=== PATIENT | female | born 1995 | race Two or more races ===

== ENCOUNTER 2023-03-31 15:29 | Emergency (ER) | payer MEDICAID ==
[~2023-03-31] VITALS: Ht 157.5 cm; Wt 45.0 kg
[2023-03-31 16:29] LABS: Basophils # (auto) 0 10 ^3/uL (0-0.2); Basophils % (auto) 0.1 % (0.0-2.0); Eosinophils # (auto) 0 10 ^3/uL (0-0.8); Hematocrit 41.8 % (36.0-46.0); Hemoglobin 13.7 g/dL (12.2-16.2); Lymphocytes # (auto) 2.2 10 ^3/uL (0.4-5.4); Lymphocytes % (auto) 25.8 % (10.0-50.0); Mean Corpuscular Hemoglobin 29.8 pg (28.0-32.0); Mean Corpuscular Hgb Conc. 32.8 g/dL (32.0-36.0); Mean Corpuscular Volume 90.8 fL (80.0-100.0); Monocytes # (auto) 0.7 10 ^3/uL (0-1.3); Monocytes % (auto) 8.4 % (0.0-12.0); Neutrophils # (auto) 5.6 10 ^3/uL (1.6-8.6); Neutrophils % (auto) 65.7 % (37.0-80.0); Red Cell Distribution Width 13.2 % (11.8-14.3); White Blood Cell 8.6 10^3/uL (4.4-10.8)
[2023-03-31 16:33] LABS: Urine Bacteria FEW /hpf (None Seen); Urine Blood Negative /uL (Negative); Urine WBC 4 /hpf (0 - 5)
[2023-03-31] MEDS ORDERED: CEPH250C PO (16:41)
[2023-03-31 16:54] LABS: Albumin 4.1 g/dL (3.4-5.0); Calcium 8.8 mg/dL (8.5-10.1); Potassium 3.9 mmol/L (3.5-5.1)
[2023-03-31 16:57] LABS: Bilirubin, Total 0.4 mg/dL (0.2-1.0); Total Protein 7.3 g/dL (6.4-8.2)
[2023-03-31 17:49] VITALS: BP 101/70; PULSE 85; RESP 16; TEMP 98.6; O2SAT 98
== END 2023-03-31 17:51 | disposition home or self-care (01) ==
LOC: ER 15:29
DX: N39.0 Urinary tract infection, site not specified (principal); R10.2 Pelvic and perineal pain
CPT/HCPCS: 36415; 80053; 81001; 84702; 85025

== ENCOUNTER 2025-07-14 12:38 | Observation (INO) | payer BC, MEDICAID ==
[~2025-07-14 12:38] MED LIST: CEPH250C PO; CHLO0.1238 MT; LIDO2SOL18 MT; PREN-96 PO
--- NOTE | 2025-07-14 13:56 | DVH ---
BIOPHYSICAL PROFILE HISTORY: Decreased movement TECHNIQUE: Multiple transabdominal real-time grayscale sonographic images through the gravid uterus of the fetus with duplex Doppler color flow and M-mode spectral analysis FINDINGS: BIOPHYSICAL PROFILE: breathing score: 2 movement score: 2 tone score: 2 Quantitative MADELYN score: 2 (MADELYN: 12.8 cm, MVP: 4.4 cm ) Total score: 8/8 The cervix obscured by head Single live fetus in cephalic presentation. heart rate 159 beats per minute. Fundal Grade 2-3 placenta without previa or abruption Single live fetus at 37 weeks 4 days Biophysical profile score 8/8 corresponding to an SOLO of 07/31/2025 IMPRESSION: 1. Biophysical profile score: 8/8
== END 2025-07-14 14:31 | disposition home or self-care (01) ==
LOC: LDRP 12:38 → UNDOADMOB 12:38 → LDRP 12:49
PROVIDERS: ADMIT Obstetrics & Gynecology; ATTEND Obstetrics & Gynecology
DX: O36.8130 Decreased fetal movements, third trimester, not applicable or unspecified (principal); Z3A.37 37 weeks gestation of pregnancy; Z98.890 Other specified postprocedural states
CPT/HCPCS: 76818; 81002; G0378; 59025; 76819

== ENCOUNTER 2025-07-15 09:40 | Observation (INO) | payer SELFPAY ==
--- NOTE | 2025-07-15 15:06 | DVHDS2 ---
Physician Discharge Progress N Final Diagnosis: sga 37wks Operations or Procedures: Operations or Procedures nst reactive reviwed,sono Condition on Discharge: Good Disposition: Home Discharge Instructions: Diet: Regular Activity: No Restrictions, As Tolerated Medications: na Follow Up Care: Specialist: 2d Discharge Statement: "Patient was advised to return to the ER or call 911 if any headaches, dizziness, shortness of breath, chest pain, abdominal pain, bleeding, fevers, or worsening of medical condition. Patient was counseled about treatment plan, medications, possible side effects, patientverbalized understanding. All questions were answered to the best of my ability. This discharge took greater then 30 minutes in planning, reviewing documentat ion, counseling the patient, and discussing with other team members." Visit Coding OBGYN Date of Service: Jul 15, 2025 Billing Provider: TIANA SINGH DO HEAD IRRIGATOR Common Visit Codes: [id number] INP/OBS CARE (HIGH) HEAD IRRIGATOR Procedure Codes: 68768-35- NON-STRESS TEST TIANA SINGH DO Jul 15, 2025 15:06
== END 2025-07-15 11:06 | disposition home or self-care (01) ==
LOC: LDRP 09:40
PROVIDERS: ADMIT Obstetrics & Gynecology; ATTEND Obstetrics & Gynecology
DX: O36.5930 Maternal care for other known or suspected poor fetal growth, third trimester, not applicable or unspecified (principal); Z3A.37 37 weeks gestation of pregnancy; Z98.890 Other specified postprocedural states
CPT/HCPCS: 59025; 81002; 94760; G0378

== ENCOUNTER 2025-07-19 09:46 | Observation (INO) | payer BC, SELFPAY ==
--- NOTE | 2025-07-19 12:47 | DVH ---
BIOPHYSICAL PROFILE HISTORY: SGA TECHNIQUE: Multiple transabdominal real-time grayscale sonographic images through the gravid uterus of the fetus with duplex Doppler color flow and M-mode spectral analysis FINDINGS: BIOPHYSICAL PROFILE: breathing score: 2 movement score: 2 tone score: 2 Quantitative MADELYN score: 2 (MADELYN: 14.3 cm, MVP: 4.4 cm.) Total score: 8/8 The cervix not visualized Single live fetus in cephalic presentation. heart rate 147 beats per minute. Fundal Grade 2 placenta without previa or abruption Single live fetus at 30 weeks 2 days Biophysical profile score 8/8 corresponding to an SOLO of 07/31/2025. IMPRESSION: 1. Biophysical profile score: 8/8 2. FHR: 147 BPM.
--- NOTE | 2025-07-19 13:42 | DVH ---
EXAM: US OB ULTRASOUND COMP GTR 14 WKS HISTORY: SGA COMPARISON: None TECHNIQUE: Transabdominal and endovaginal real time abbasi scale, color, and doppler evaluation. Permanent images are maintained in the patient record. FINDINGS: GA by previous US/LMP: 38 weeks, 2 days SOLO by previous US/LMP: 07/31/25 US GESTATIONAL AGE: 36 weeks, 3 days US SOLO: 08/13/25 ESTIMATED WEIGHT: 2746 g. 6 lb, 1 oz HEART RATE: 148 bpm BPD: 9.34 cm, 38 weeks 0 days, 68.3% HC: 33.08 cm, 37 weeks 5 days, 19.3% AC: 31.61 cm, 35 weeks 4 days, 5.9% FL: 6.68 cm, 34 weeks 3days, 3% HC/AC: 1.05 ANATOMY: Normal 4-chamber heart, stomach, kidneys, bladder POSITION: Cephalic PLACENTA: Fundal MADELYN: 14.3 cm IMPRESSION: 1. Single viable gestation with normal cardiac heart rate.
--- NOTE | 2025-07-22 16:55 | DVHDS2 ---
Physician Discharge Progress N Final Diagnosis: iup at 38wks labor check Operations or Procedures: Operations or Procedures nst reactive reviwed,sono Condition on Discharge: Good Disposition: Home Discharge Instructions: Diet: Regular Activity: No Restrictions, As Tolerated Medications: na Follow Up Care: Specialist: 2d Discharge Statement: "Patient was advised to return to the ER or call 911 if any headaches, dizziness, shortness of breath, chest pain, abdominal pain, bleeding, fevers, or worsening of medical condition. Patient was counseled about treatment plan, medications, possible side effects, patientverbalized understanding. All questions were answered to the best of my ability. This discharge took greater then 30 minutes in planning, reviewing documentation, counseling the patient, and discussing with other team members." Visit Coding OBGYN Date of Service: Jul 19, 2025 Billing Provider: TIANA SINGH DO INSURANCE FOLLOW UP SPECIALIST Common Visit Codes: [id number] OBS CARE (HIGH) INSURANCE FOLLOW UP SPECIALIST Procedure Codes: 91782-24- NON-STRESS TEST TIANA SINGH DO Jul 22, 2025 16:55
== END 2025-07-19 13:27 | disposition home or self-care (01) ==
LOC: LDRP 10:14
PROVIDERS: ADMIT Obstetrics & Gynecology; ATTEND Obstetrics & Gynecology
DX: O62.9 Abnormality of forces of labor, unspecified (principal); Z3A.38 38 weeks gestation of pregnancy; Z98.890 Other specified postprocedural states
CPT/HCPCS: 76805; 76818; 81002; 94760; G0378; 59025; 76819

== ENCOUNTER 2025-07-24 15:13 | Observation (INO) | payer BC ==
--- NOTE | 2025-07-25 09:14 | DVHDS2 ---
Physician Discharge Progress N Final Diagnosis: swelloing 34 wks Operations or Procedures: Operations or Procedures nst reactive reviwed,sono Condition on Discharge: Good Disposition: Home Discharge Instructions: Diet: Regular Activity: No Restrictions, As Tolerated Medications: na Follow Up Care: Specialist: 2d Discharge Statement: "Patient was advised to return to the ER or call 911 if any headaches, dizziness, shortness of breath, chest pain, abdominal pain, bleeding, fevers, or worsening of medical condition. Patient was counseled about treatment plan, medications, possible side effects, patientverbalized understanding. All questions were answered to the best of my ability. This discharge took greater then 30 minutes in planning, reviewing doc umentation, counseling the patient, and discussing with other team members." Visit Coding OBGYN Date of Service: Jul 25, 2025 Billing Provider: TIANA SINGH DO PLASTIC EXTRUDING MACHINE OPERATOR Common Visit Codes: [id number] INP/OBS CARE (HIGH) PLASTIC EXTRUDING MACHINE OPERATOR Procedure Codes: 95916-90- NON-STRESS TEST TIANA SINGH DO Jul 25, 2025 09:14
== END 2025-07-24 16:26 | disposition home or self-care (01) ==
LOC: UNDOADMOB 15:13 → LDRP 15:13 → UNDODISOB 16:26
PROVIDERS: ADMIT Obstetrics & Gynecology; ATTEND Obstetrics & Gynecology
DX: O26.893 Other specified pregnancy related conditions, third trimester (principal); M79.89 Other specified soft tissue disorders; Z3A.34 34 weeks gestation of pregnancy; Z98.890 Other specified postprocedural states
CPT/HCPCS: 59025; 81002; 94760

== ENCOUNTER 2025-07-30 06:29 | Inpatient (IN) | payer BC ==
[~2025-07-30] VITALS: Ht 157.5 cm; Wt 59.0 kg
[2025-07-30] MEDS ORDERED: BUTORPHANOL TARTRATE 2 MG/1 ML VIAL IV PRN ×2 (08:30)
[2025-07-30 09:16] LABS: Hematocrit 42.2 % (36.0-46.0); Hemoglobin 14.3 g/dL (12.2-16.2); Mean Corpuscular Hemoglobin 31.8 pg (28.0-32.0); Mean Corpuscular Volume 94.0 fL (80.0-100.0); Nucleated Red Blood Cells % 0.1 %
[2025-07-30 09:27] LABS: Urine Protein, UAD TRACE (Negative)
[2025-07-30 09:28] LABS: INR 0.9 (0.9-1.15); Partial Thromboplastin Time 28.8 SEC (24.5-34.5); Prothrombin Time 9.6 sec (9.3-11.8)
[2025-07-30 09:34] LABS: Alanine Aminotransferase 24 U/L (7-40); Anion Gap 9 (5-15); BUN/Creatinine Ratio 12.5 (10.0-20.0); Calcium 9.1 mg/dL (8.7-10.4); Carbon Dioxide 25 mmol/L (20-31); Chloride 105 mmol/L (98-107); Glucose 91 mg/dL (74-106); Potassium 3.6 mmol/L (3.5-5.1); Sodium 139 mmol/L (136-145); Total Protein 6.1 g/dL (5.7-8.2)
[2025-07-30 09:35] LABS: Albumin 3.6 g/dL (3.2-4.8); Bilirubin, Total 0.3 mg/dL (0.2-1.0)
[2025-07-30] MEDS: PENICILLIN G POT 5MIL/D5 50ML 50 ML IV ONE (09:36)
[2025-07-30 09:37] LABS: Alkaline Phosphatase 182 U/L (46-116); Blood Urea Nitrogen 8 mg/dL (9-23)
[2025-07-30] MEDS: DERMOPLAST 60ML BOTTLE TOP PRN (09:40)
[2025-07-30] MEDS: PHISODERM TOP SOLN 240ML BTL TOP PRN (09:40)
[2025-07-30] MEDS: WITCH HAZEL-GLYCERIN PAD TOP PRN (09:40)
[2025-07-30] MEDS: LACTATED RINGER'S 1,000 ML IV SCH (09:41)
[2025-07-30 10:04] LABS: Amphetamine Screen, Urine Neg (NEGATIVE); Barbiturate Scree,Urine Neg (NEGATIVE); Benzodiazephine Screen, Urine Neg (NEGATIVE); Cannabinoid Screen, Urine Neg (NEGATIVE); Cocaine Screen, Urine Neg (NEGATIVE); Opiate Scree,Urine Neg (NEGATIVE); Phencyclidine Screen, Urine Neg (NEGATIVE)
[2025-07-30] MEDS: PENICILLIN G POTASSIUM 2,500,000 UNITS in D5W 5% 50 ML IV SCH (13:42)
--- NOTE | 2025-07-30 14:51 | DVHHP2 ---
OB CC & HPI Date Date of Admission: Jul 30, 2025 Patient Identification: : 2 Para: 1 EDC: Jul 31, 2025 EGA: 39wks Chief Complaints: Reason for admission: induction of labor Admission Nurse Assessment Rev: No History of Present Complaints pt desires to be induced,denies any vag bleeding or rom Past Medical History Cardiac: No pertinent Hx Pulmonary: No pertinent Hx Central Nervous System: No pertinent Hx GI: No pertinent Hx Hemotology/Oncology: No pertinent Hx Hepatobiliary: No pertinent Hx Psychiatric: No pertinent Hx Musculoskeletal: No pertinent Hx Rheumotologic: No pertinent Hx Infectious Disease: No peritnent Hx ENT: No pertinent Hx Renal/: No pertinent Hx Endocrine: No pertinent Hx Dermatology: No pertinent Hx Past Surgical History: No pertinent Hx OB History OB History Care: Good Care Ultrasounds: Normal mid trimester US Medical Complications: None Allergies: Coded Allergies: NO KNOWN ALLERGIES (Unverified , 03/31/23) Home Meds Active Scripts Cephalexin (KEFLEX CAPSULE) 250 Mg Cp, 250 MG PO TID for 7 Days, #21 BOTTLE Prov:ABHI ORTIZ MD 03/31/23 Lidocaine Hcl (Lidocaine Viscous) 2 % Norma, 15 ML MT BID for 7 Days, #120 Prov:SANDRA MCMANUS MD 11/01/21 Chlorhexidine Gluconate (Mouth (Chlorhexadine Gluconate) 0.12 % Norma, 0.12 % MT BID, #120 ML Prov:SANDRA MCMANUS MD 11/01/21 Reported Medications Vit W/ Ferrous Fumara ( One Daily) Daily Tab, 1 TAB PO DAILY, #90 TAB 3 Refills 05/06/20 Current Medications Current Medications Medications (Trade) Dose Ordered Sig/Reggie Route PRN Reason Start Time Stop Time Status Last Admin Lactated Ringer's 1,000 ml @ 125 mls/hr Q8H IV 07/30/25 08:30 07/30/25 09:41 Penicillin G Potassium [id number] units/Dextrose 50 ml @ 100 mls/hr Q4H IV 07/30/25 12:30 07/30/25 13:42 Witch Brittny (Tucks) 1 pad PRN PRN TOP PERINEAL AREA DISCOMFORT 07/30/25 08:30 07/30/25 09:40 Sodium Lauryl Sulfate (Phisoderm) 240 ml PRN PRN TOP PERINEAL AREA DISCOMFORT 07/30/25 08:30 07/30/25 09:40 Benzocaine (Dermoplast) 1 applic PRN PRN TOP PERINEAL AREA DISCOMFORT 07/30/25 08:30 07/30/25 09:40 Butorphanol Tartrate (Stadol Injection) 1 mg Q4HPRN PRN IV MODERATE PAIN (4-6 PAIN SCALE) 07/30/25 08:30 Butorphanol Tartrate (Stadol Injection) 2 mg Q4HPRN PRN IV SEVERE PAIN (7-10 PAIN SCALE) 07/30/25 08:30 Misoprostol (Cytotec) 50 mcg Q4HPRN PRN PO CERVICAL RIPENING 07/30/25 08:30 07/30/25 13:41 Lidocaine HCl (Xylocaine) 20 ml ONCE PRN IJ PERINEAL AREA DISCOMFORT 07/30/25 08:30 Family & Social History Family/Social History Blood Type: Unknown Rubella: unknown RPR/VDRL: Negative GBS Status: Negative HBsAG: Negative Review of Systems Constitutional: No symptom reported Ears, Nose, & Throat: No symptom reported Eyes: No symptom reported Pulmonary/Respiratory: No symptom reported Cardiovascular: No symptom reported Gastrointestinal: No symptom reported Genitourinary: No symptom reported Musculoskeletal: No symptom reported Skin: No symptom reported Psychiatric: No symptom reported Endocrine: No symptom reported Hemotologic/Lymphatic: No symptom reported OB Admission Exam Physical Exam HEENT: TMs Normal, Fontanelles Normal, Nasal Mucosa Normal, Eyes non-injected, Oropharynx Normal, PERRLA, Moist Membranes, EOMI Heart: Rhythm Normal Lungs: Clear Abdomen: Non tender Extremities: Normal Reflexes: Normal Cervical Dilatation: 2cm Effacement: 25% Station: -3 Membranes: Intact Heart Rate: 130's Accelerations: Accelerations Present Decelerations: No Decelerations Short Term Variability: Present Rn Gyn Variability: Average (6-25) Contractions on Admission: >10 Minutes Apart Intensity: Mild OB Plan Plan Admitting Diagnosis: induction of labor at 39 wks Plan: Induction Other Plan: informed consent obtained proceed with cytotec.possib of shoulder dystocia /option of pcs d/w pt.pt wants to proceed with iol Visit Coding OBGYN Date of Service: Jul 30, 2025 Billing Provider: TIANA SINGH DO AIR CONDITIONER INSTALLER HELPER Common Visit Codes: [id number] OBS CARE (HIGH) AIR CONDITIONER INSTALLER HELPER Procedure Codes: 55621-90- NON-STRESS TEST TIANA SINGH DO Jul 30, 2025 14:51
--- NOTE | 2025-07-30 15:13 | DVHPN2 ---
Chief Complaints Patient reports: No new complaints Nursing reports: No new complaints Objective Medications Current Medications Medications (Trade) Dose Ordered Sig/Reggie Route PRN Reason Start Time Stop Time Status Last Admin Benzocaine (Dermoplast) 1 applic PRN PRN TOP PERINEAL AREA DISCOMFORT 07/30/25 08:30 07/30/25 09:40 Butorphanol Tartrate (Stadol Injection) 1 mg Q4HPRN PRN IV MODERATE PAIN (4-6 PAIN SCALE) 07/30/25 08:30 Butorphanol Tartrate (Stadol Injection) 2 mg Q4HPRN PRN IV SEVERE PAIN (7-10 PAIN SCALE) 07/30/25 08:30 Lactated Ringer's 1,000 ml @ 125 mls/hr Q8H IV 07/30/25 08:30 07/30/25 09:41 Lidocaine HCl (Xylocaine) 20 ml ONCE PRN IJ PERINEAL AREA DISCOMFORT 07/30/25 08:30 Misoprostol (Cytotec) 50 mcg Q4HPRN PRN PO CERVICAL RIPENING 07/30/25 08:30 07/30/25 13:41 Penicillin G Potassium 9052849 units/Dextrose 50 ml @ 100 mls/hr Q4H IV 07/30/25 12:30 07/30/25 13:42 Sodium Lauryl Sulfate (Phisoderm) 240 ml PRN PRN TOP PERINEAL AREA DISCOMFORT 07/30/25 08:30 07/30/25 09:40 Witch Brittny (Tucks) 1 pad PRN PRN TOP PERINEAL AREA DISCOMFORT 07/30/25 08:30 07/30/25 09:40 Others ve- 3cm/50/-2 Studies Laboratory Tests 07/30/25 08:46 Test 07/30/25 08:46 Range/Units Serum Glucose 91 74-106 mg/dL Ass/Plan Assessment iol Plan rec 2 cytotec Visit Coding OBGYN Date of Service: Jul 30, 2025 Billing Provider: TIANA SINGH DO SPORTS OFFICIAL Common Visit Codes: [id number] OBS CARE (HIGH) SPORTS OFFICIAL Procedure Codes: 21510-30- NON-STRESS TEST TIANA SINGH DO Jul 30, 2025 15:13
--- NOTE | 2025-07-30 16:54 | DVHPN2 ---
CNM Labor Progress Note Date and Time Seen Date Seen: Jul 30, 2025 Time Seen: 16:33 Subjective Patient reports: No new complaints Subjective Comment Pt agrees to cooks balloon after discussion. Objective Vital Signs VSS, see CPN Monitoring Method Monitoring Method: External (via doppler) Heart Rate Heart Rate Baseline: 145 Contractions Contractions Frequency: Occasional Contractions Intensity: Mild Contractions Resting Tone: Relaxed Membranes Membranes: Intact Vaginal Exam Vag Exam Deferred: No (2.5/50/-3, cooks balloon inserted with 80/80 NS) Vaginal Exam Presentation: VTX Vaginal Exam Show: None Medications Medications - Pitocin: No Medications - Pain Medications: PRN Medication - Epidural: No Medication - Other s/p 2 doses of PO cytotec Lab Results Lab Results Current Medications Medications (Trade) Dose Ordered Sig/Reggie Start Time Stop Time Status Last Admin Dose Admin Lactated Ringer's 1,000 ml @ 125 mls/hr Q8H 07/30/25 08:30 07/30/25 09:41 125 MLS/HR Penicillin G Potassium 50 ml @ 100 mls/hr ONCE ONCE 07/30/25 08:30 07/30/25 08:59 DC 07/30/25 09:36 100 MLS/HR Penicillin G Potassium [id number] units/Dextrose 50 ml @ 100 mls/hr Q4H 07/30/25 12:30 07/30/25 13:42 100 MLS/HR [place]inna Brittny (Tucks) 1 pad PRN PRN 07/30/25 08:30 07/30/25 09:40 1 PAD Sodium Lauryl Sulfate (Phisoderm) 240 ml PRN PRN 07/30/25 08:30 07/30/25 09:40 240 ML Benzocaine (Dermoplast) 1 applic PRN PRN 07/30/25 08:30 07/30/25 09:40 1 APPLIC Butorphanol Tartrate (Stadol Injection) 1 mg Q4HPRN PRN 07/30/25 08:30 Butorphanol Tartrate (Stadol Injection) 2 mg Q4HPRN PRN 07/30/25 08:30 Misoprostol (Cytotec) 50 mcg Q4HPRN PRN 07/30/25 08:30 07/30/25 13:41 50 MCG Lidocaine HCl (Xylocaine) 20 ml ONCE PRN 07/30/25 08:30 Laboratory Tests Test 07/30/25 08:46 07/30/25 08:25 Range/Units White Blood Count 12.1 H 4.4-10.8 10^3/uL Red Blood Count 4.49 4.0-5.20 10^6/uL Hemoglobin 14.3 12.2-16.2 g/dL Hematocrit 42.2 36.0-46.0 % Mean Corpuscular Volume 94.0 80.0-100.0 fL Mean Corpuscular Hemoglobin 31.8 28.0-32.0 pg Mean Corpuscular Hemoglobin Concent 33.8 32.0-36.0 g/dL Red Cell Distribution Width 13.6 11.8-14.3 % Platelet Count 245 140-450 10^3/uL Mean Platelet Volume 8.2 6.9-10.8 fL Neutrophils (%) (Auto) 82.4 H 37.0-80.0 % Lymphocytes (%) (Auto) 11.2 10.0-50.0 % Monocytes (%) (Auto) 6.2 0.0-12.0 % Eosinophils (%) (Auto) 0.1 0.0-7.0 % Basophils (%) (Auto) 0.1 0.0-2.0 % Neutrophils # (Auto) 10.0 H 1.6-8.6 10 ^3/uL Lymphocytes # (Auto) 1.4 0.4-5.4 10 ^3/uL Monocytes # (Auto) 0.7 0-1.3 10 ^3/uL Eosinophils # (Auto) 0 0-0.8 10 ^3/uL Basophils # (Auto) 0 0-0.2 10 ^3/uL Nucleated Red Blood Cells 0.1 % Prothrombin Time 9.6 9.3-11.8 sec Prothrombin Time INR 0.90 0.9-1.15 Activated Partial Thromboplast Time 28.8 24.5-34.5 SEC Sodium Level 139 136-145 mmol/L Potassium Level 3.6 3.5-5.1 mmol/L Chloride Level 105 98-107 mmol/L Carbon Dioxide Level 25 20-31 mmol/L Anion Gap 9 5-15 Blood Urea Nitrogen 8 L 9-23 mg/dL Creatinine 0.64 0.550-1.02 mg/dL Glomerular Filtration Rate Calc 123 >90 mL/min BUN/Creatinine Ratio 12.5 10.0-20.0 Serum Glucose 91 74-106 mg/dL Calcium Level 9.1 8.7-10.4 mg/dL Total Bilirubin 0.3 0.2-1.0 mg/dL Aspartate Amino Transferase (AST) 28 13-40 U/L Alanine Aminotransferase (ALT) 24 7-40 U/L Alkaline Phosphatase 182 H 46-116 U/L Total Protein 6.1 5.7-8.2 g/dL Albumin 3.6 3.2-4.8 g/dL Treponema pallidum Antibody Non-reactive Negative Urine Color Yellow Yellow Urine Clarity Turbid H Clear Urine pH 6.5 5.0-9.0 Urine Specific [place] 1.021 1.001-1.035 Urine Protein Trace H Negative Urine Ketones Negative Negative Urine Blood Negative Negative /uL Urine Nitrite Negative Negative Urine Bilirubin Negative Negative Urine Urobilinogen Normal Negative mg/dL Urine Leukocyte Esterase 3+ Negative /uL Urine RBC 7 0 - 4 /hpf Urine Microscopic WBC 35 H 0-5 /HPF Urine Squamous Epithelial Cells Mod <5 /hpf Urine Bacteria Mod H None Seen /hpf Urine Mucus Few None Seen Urine Glucose Trace Normal mg/dL Urine Opiates Screen Neg NEGATIVE Urine Fentanyl Screen Neg NEGATIVE Urine Barbiturates Screen Neg NEGATIVE Urine Phencyclidine Screen Neg NEGATIVE Urine Amphetamines Screen Neg NEGATIVE Urine Benzodiazepines Screen Neg NEGATIVE Urine Cocaine Screen Neg NEGATIVE Urine Cannabinoids Screen Neg NEGATIVE Assessment Assessment A: 30yo IUP@39 6/7wks Elective Induction of Labor Category I EFM Intact Membranes GBS positive Plan Plan P: Plan to keep cooks balloon for 12 hours or until it falls out Discussed potential of starting pitocin later, pt agrees to plan of care monitoring per order Pain mgmt PRN Frequent position changes in and out of bed encouraged Limit SVE unless necessary Intrauterine resuscitation PRN Anticipate CNM will consult with Dr. Brewer PRN Plan discussed with: Patient, Spouse Visit Coding OBGYN Date of Service: Jul 30, 2025 Billing Provider: DASHAWN PINON CNM RIVETING MACHINE OPERATOR TAPE CONTROL Common Visit Codes: [id number] INP/OBS CARE(MOD) RIVETING MACHINE OPERATOR TAPE CONTROL Procedure Codes: 54454-87- NON-STRESS TEST DASHAWN PINON CNM Jul 30, 2025 16:54
[2025-07-30] MEDS ORDERED: TERBUTALINE SULFATE 1 MG/ML 1ML VIAL SC PRN (19:00)
[2025-07-30] MEDS: LACT. RINGERS/OXYTOCIN 20UNITS 1,000 ML IV SCH (19:55)
[2025-07-30] MEDS: LIDOCAINE 2%HCL (LOCAL ANESTH.) INJ 20ML MDV IJ PRN (20:08)
--- NOTE | 2025-07-30 22:23 | DVHPN2 ---
CNM Labor Progress Note Date and Time Seen Date Seen: Jul 30, 2025 Time Seen: 22:05 Subjective Patient reports: No new complaints Subjective Comment Pt is tolerating labor 3/10 pain No new complaints Denies pain interventions Objective Vital Signs VSS see cpn Monitoring Method Monitoring Method: External Heart Rate Heart Rate Baseline: 145 Heart Rate Variability: Moderate Presence of FHR Accelerations: Yes Presence of FHR Decelerations: No Are all 5 Components of the FH: Yes Contractions Contractions Frequency: Other (4-5 in 10 minutes) Duration of Contraction: 80 Contractions Intensity: Moderate Contractions Resting Tone: Relaxed Membranes Membranes: Intact Vaginal Exam Vag Exam Deferred: No (4.5cm, cooks balloon out ) Vaginal Exam Effacement: 60 Vaginal Exam Station: -2 Vaginal Exam Presentation: VTX Vaginal Exam Show: Moderate Medications Medications - Pitocin: Yes (12 mu) Medications - Pain Medications: PRN Medication - Epidural: No Medication - Other S/p x2 doses of cytotec Lab Results Lab Results Current Medications Medications (Trade) Dose Ordered Sig/Reggie Start Time Stop Time Status Last Admin Dose Admin Lactated Ringer's 1,000 ml @ 125 mls/hr Q8H 07/30/25 08:30 07/30/25 09:41 125 MLS/HR Penicillin G Potassium 50 ml @ 100 mls/hr ONCE ONCE 07/30/25 08:30 07/30/25 08:59 DC 07/30/25 09:36 100 MLS/HR Penicillin G Potassium [id number] units/Dextrose 50 ml @ 100 mls/hr Q4H 07/30/25 12:30 07/30/25 17:54 100 MLS/HR [place] (Tucks) 1 pad PRN PRN 07/30/25 08:30 07/30/25 09:40 1 PAD Sodium Lauryl Sulfate (Phisoderm) 240 ml PRN PRN 07/30/25 08:30 07/30/25 09:40 240 ML Benzocaine (Dermoplast) 1 applic PRN PRN 07/30/25 08:30 07/30/25 09:40 1 APPLIC Butorphanol Tartrate (Stadol Injection) 1 mg Q4HPRN PRN 07/30/25 08:30 Butorphanol Tartrate (Stadol Injection) 2 mg Q4HPRN PRN 07/30/25 08:30 Misoprostol (Cytotec) 50 mcg Q4HPRN PRN 07/30/25 08:30 07/30/25 13:41 50 MCG Lidocaine HCl (Xylocaine) 20 ml ONCE PRN 07/30/25 08:30 07/30/25 20:08 20 ML Oxytocin 1,000 ml @ 6 ml/hr Q24H 07/30/25 19:00 07/30/25 19:55 3 ML/HR Terbutaline Sulfate (Brethine Inj) 0.25 mg ONCE PRN 07/30/25 19:00 Oxytocin 500 ml @ 999 mls/hr Q31M ONCE 07/30/25 19:00 07/30/25 19:30 DC Oxytocin 500 ml @ 125 mls/hr Q4H ONCE 07/30/25 19:30 07/30/25 23:29 Laboratory Tests Test 07/30/25 08:46 07/30/25 08:25 Range/Units White Blood Count 12.1 H 4.4-10.8 10^3/uL Red Blood Count 4.49 4.0-5.20 10^6/uL Hemoglobin 14.3 12.2-16.2 g/dL Hematocrit 42.2 36.0-46.0 % Mean Corpuscular Volume 94.0 80.0-100.0 fL Mean Corpuscular Hemoglobin 31.8 28.0-32.0 pg Mean Corpuscular Hemoglobin Concent 33.8 32.0-36.0 g/dL Red Cell Distribution Width 13.6 11.8-14.3 % Platelet Count 245 140-450 10^3/uL Mean Platelet Volume 8.2 6.9-10.8 fL Neutrophils (%) (Auto) 82.4 H 37.0-80.0 % Lymphocytes (%) (Auto) 11.2 10.0-50.0 % Monocytes (%) (Auto) 6.2 0.0-12.0 % Eosinophils (%) (Auto) 0.1 0.0-7.0 % Basophils (%) (Auto) 0.1 0.0-2.0 % Neutrophils # (Auto) 10.0 H 1.6-8.6 10 ^3/uL Lymphocytes # (Auto) 1.4 0.4-5.4 10 ^3/uL Monocytes # (Auto) 0.7 0-1.3 10 ^3/uL Eosinophils # (Auto) 0 0-0.8 10 ^3/uL Basophils # (Auto) 0 0-0.2 10 ^3/uL Nucleated Red Blood Cells 0.1 % Prothrombin Time 9.6 9.3-11.8 sec Prothrombin Time INR 0.90 0.9-1.15 Activated Partial Thromboplast Time 28.8 24.5-34.5 SEC Sodium Level 139 136-145 mmol/L Potassium Level 3.6 3.5-5.1 mmol/L Chloride Level 105 98-107 mmol/L Carbon Dioxide Level 25 20-31 mmol/L Anion Gap 9 5-15 Blood Urea Nitrogen 8 L 9-23 mg/dL Creatinine 0.64 0.550-1.02 mg/dL Glomerular Filtration Rate Calc 123 >90 mL/min BUN/Creatinine Ratio 12.5 10.0-20.0 Serum Glucose 91 74-106 mg/dL Calcium Level 9.1 8.7-10.4 mg/dL Total Bilirubin 0.3 0.2-1.0 mg/dL Aspartate Amino Transferase (AST) 28 13-40 U/L Alanine Aminotransferase (ALT) 24 7-40 U/L Alkaline Phosphatase 182 H 46-116 U/L Total Protein 6.1 5.7-8.2 g/dL Albumin 3.6 3.2-4.8 g/dL Treponema pallidum Antibody Non-reactive Negative Urine Color Yellow Yellow Urine Clarity Turbid H Clear Urine pH 6.5 5.0-9.0 Urine Specific [place] 1.021 1.001-1.035 Urine Protein Trace H Negative Urine Ketones Negative Negative Urine Blood Negative Negative /uL Urine Nitrite Negative Negative Urine Bilirubin Negative Negative Urine Urobilinogen Normal Negative mg/dL Urine Leukocyte Esterase 3+ Negative /uL Urine RBC 7 0 - 4 /hpf Urine Microscopic WBC 35 H 0-5 /HPF Urine Squamous Epithelial Cells Mod <5 /hpf Urine Bacteria Mod H None Seen /hpf Urine Mucus Few None Seen Urine Glucose Trace Normal mg/dL Urine Opiates Screen Neg NEGATIVE Urine Fentanyl Screen Neg NEGATIVE Urine Barbiturates Screen Neg NEGATIVE Urine Phencyclidine Screen Neg NEGATIVE Urine Amphetamines Screen Neg NEGATIVE Urine Benzodiazepines Screen Neg NEGATIVE Urine Cocaine Screen Neg NEGATIVE Urine Cannabinoids Screen Neg NEGATIVE Assessment Assessment 30yo IUP@39 6/7wks Elective Induction of Labor Category I EFM Intact Membranes GBS positive Plan Plan Continuing pitocin, pt agrees to plan of care continue IV penicillin for GBS tx monitoring per order Pain mgmt PRN Frequent position changes in and out of bed encouraged Limit SVE unless necessary Intrauterine resuscitation PRN Anticipate CNM will consult with Dr. Brewer PRN Plan discussed with: Patient, Spouse Visit Coding OBGYN Date of Service: Jul 30, 2025 Billing Provider: DASHAWN PINON CNM TRACK LAYING EQUIPMENT OPERATOR Common Visit Codes: [id number] INP/OBS CARE(MOD) AMADO SOLIZ STUDENTMDW Jul 30, 2025 22:23
[2025-07-31] MEDS: D5W/LACTATED RINGERS 1,000 ML IV SCH (04:19)
--- NOTE | 2025-07-31 06:57 | DVH ---
BIOPHYSICAL PROFILE HISTORY: Category 2 strip TECHNIQUE: Multiple transabdominal real-time grayscale sonographic images through the gravid uterus of the fetus with duplex Doppler color flow and M-mode spectral analysis FINDINGS: BIOPHYSICAL PROFILE: breathing score: 2 movement score: 2 tone score: 2 Quantitative MADELYN score: 2 (MADELYN: 6.9 Cm.) previously, MADELYN measured 14.3 cm on the prior ultrasound from 07/19/2025. Total score: 8 The cervix is not visualized. Single live fetus in cephalic presentation. heart rate 138 beats per minute. Grade 3 posterior placenta without previa or abruption IMPRESSION: 1. Single fetus with detected heart rate measuring 138 beats per minute. Biophysical profile score: 8/8. 2. MADELYN Decreased, currently measuring 6.9 cm previously measuring 14.3 cm on the prior ultrasound from 07/19/2025.
--- NOTE | 2025-07-31 07:02 | DVHPN2 ---
Chief Complaints Patient reports: No new complaints Nursing reports: No new complaints Objective Medications Current Medications Medications (Trade) Dose Ordered Sig/Reggie Route PRN Reason Start Time Stop Time Status Last Admin Benzocaine (Dermoplast) 1 applic PRN PRN TOP PERINEAL AREA DISCOMFORT 07/30/25 08:30 07/30/25 09:40 Butorphanol Tartrate (Stadol Injection) 1 mg Q4HPRN PRN IV MODERATE PAIN (4-6 PAIN SCALE) 07/30/25 08:30 Butorphanol Tartrate (Stadol Injection) 2 mg Q4HPRN PRN IV SEVERE PAIN (7-10 PAIN SCALE) 07/30/25 08:30 Dextrose/Lactated Ringer's 1,000 ml @ 125 mls/hr Q8H IV 07/31/25 04:00 07/31/25 04:19 Lactated Ringer's 1,000 ml @ 125 mls/hr Q8H IV 07/30/25 08:30 07/31/25 04:19 Lidocaine HCl (Xylocaine) 20 ml ONCE PRN IJ PERINEAL AREA DISCOMFORT 07/30/25 08:30 07/30/25 20:08 Misoprostol (Cytotec) 50 mcg Q4HPRN PRN PO CERVICAL RIPENING 07/30/25 08:30 07/30/25 13:41 Oxytocin 1,000 ml @ 6 ml/hr Q24H IV 07/30/25 19:00 07/30/25 19:55 Penicillin G Potassium [id number] units/Dextrose 50 ml @ 100 mls/hr Q4H IV 07/30/25 12:30 07/31/25 02:59 Sodium Lauryl Sulfate (Phisoderm) 240 ml PRN PRN TOP PERINEAL AREA DISCOMFORT 07/30/25 08:30 07/30/25 09:40 Terbutaline Sulfate (Brethine Inj) 0.25 mg ONCE PRN SC Uterine tachysystole 07/30/25 19:00 Karl Mart (Bassam) 1 pad PRN PRN TOP PERINEAL AREA DISCOMFORT 07/30/25 08:30 07/30/25 09:40 Others v e-5cm/60/-2 Studies Laboratory Tests 07/30/25 08:46 Test 07/30/25 08:46 Range/Units Serum Glucose 91 74-106 mg/dL Ass/Plan Assessment iol Plan start pitocin supportive care Visit Coding OBGYN Date of Service: Jul 31, 2025 Billing Provider: TIANA SINGH DO HAY CHOPPER Common Visit Codes: [id number] INP/OBS CARE (HIGH) HAY CHOPPER Procedure Codes: 91384-94- NON-STRESS TEST TIANA SINGH DO Jul 31, 2025 07:02
[2025-07-31] MEDS: LACT. RINGERS/OXYTOCIN 20UNITS 500 ML IV ONE ×2 (13:12→13:13)
[2025-07-31] MEDS ORDERED: ONDANSETRON ODT 4 MG TAB PO PRN (13:15)
[2025-07-31] MEDS ORDERED: ACETAMINOPHEN 325 MG TAB PO PRN (13:15)
[2025-07-31] MEDS ORDERED: IBUPROFEN 600 MG TAB PO PRN (13:15)
[2025-07-31 14:51] VITALS: BP 127/75; PULSE 79; TEMP 98.5; O2SAT 98
--- NOTE | 2025-07-31 15:10 | LDN2 ---
Labor and Delivery Note Date 07/31/25 Age 30 2 Para 2 EDC 11-20 EGA 39WKS Diagnosis IOL Vaginal Delivery: VTX Vacuum Assisted: No Placenta: Spontaneous Sex: Male Apgars 8-8 Nuchal Cord Transected: No Amniotic Fluid: Clear Anesthesia XYLOCAINE Episiotomy: Yes Extension: Yes (MIDLINE EPIS WITH 2ND DEG PERINEAL LAC) Repaired with 2-0 CHROMIC EBL 300ML Labs Blood Bank 07/30/25 08:46: Blood Type O POSITIVE Complications NONE Conditions STABLE Comments/Significant Med Yara SPEC EXAM NO CXAL LAC,PT HAD TO HAVE EPIS DUE TO POOR PUSHING EFFORT AND HEART DECL.HER PERMISSION WAS OBTAINED PRIOR TO PERFORMING EPIS Visit Coding OBGYN Date of Service: Jul 31, 2025 Billing Provider: TIANA SINGH DO SULFONATION EQUIPMENT OPERATOR Common Visit Codes: [id number] OBS CARE (HIGH) SULFONATION EQUIPMENT OPERATOR Procedure Codes: [id number] DELIVERY ONLY TIANA SINGH DO Jul 31, 2025 15:10
[2025-07-31 16:55] VITALS: PULSE 78; RESP 18; O2SAT 97
[2025-07-31] MEDS: IBUPROFEN 600 MG TAB PO ONE (18:07)
[2025-07-31] MEDS: IBUPROFEN 600 MG TAB PO PRN (18:10)
[2025-07-31 19:00] VITALS: BP 106/59; PULSE 98; TEMP 97.9; O2SAT 95
[2025-07-31] MEDS: DOCUSATE SOD 100 MG CAP PO SCH (22:03)
[2025-07-31 23:00] VITALS: BP 103/58; PULSE 71; TEMP 97.9; O2SAT 95
[2025-08-01 03:10] VITALS: BP 103/64; PULSE 75; TEMP 97.9; O2SAT 95
--- NOTE | 2025-08-01 04:21 | DVHPN2 ---
Progress Note Date Seen: Aug 01, 2025 Subjective Mariela is sitting in bed with baby skin to skin on her chest. Partner is awake and at bedside SUBJECTIVE -Lochia minimal -Tolerating regular diet well. -Pain relieved with oral medication PRN -Ambulating and voiding well w/o feeling lightheaded or dizzy. -Passing flatus and had BM -Breast feeding. -Desires and requests to be discharged home today (08/01) vital signs Vital Sign Date Time Temp Pulse Resp B/P (MAP) Pulse Ox O2 Delivery O2 Flow Rate FiO2 08/01/25 03:10 97.9 75 103/64 (77) 95 97.9 07/31/25 19:00 Room Air 07/31/25 16:55 18 Total Intake and Output 07/31/25 07/31/25 08/01/25 15:00 23:00 07:00 Output Total 900 ml 700 ml 700 ml Balance -900 ml -700 ml -700 ml medications Current Medications Medications Dose Ordered Sig/Reggie Route Start Time Stop Time Status Last Admin Dose Admin Lactated Ringer's 1,000 ml @ 125 mls/hr Q8H IV 07/30/25 08:30 07/31/25 04:19 125 MLS/HR Witch Brittny 1 pad PRN PRN TOP 07/30/25 08:30 07/30/25 09:40 1 PAD Sodium Lauryl Sulfate 240 ml PRN PRN TOP 07/30/25 08:30 07/30/25 09:40 240 ML Benzocaine 1 applic PRN PRN TOP 07/30/25 08:30 07/30/25 09:40 1 APPLIC Butorphanol Tartrate 1 mg Q4HPRN PRN IV 07/30/25 08:30 Cancel Butorphanol Tartrate 2 mg Q4HPRN PRN IV 07/30/25 08:30 Cancel Lidocaine HCl 20 ml ONCE PRN IJ 07/30/25 08:30 07/30/25 20:08 20 ML Terbutaline Sulfate 0.25 mg ONCE PRN SC 07/30/25 19:00 Ibuprofen 600 mg Q6HP PRN PO 07/31/25 13:15 UNV Acetaminophen 650 mg Q4HP PRN PO 07/31/25 13:15 Ondansetron HCl 4 mg Q4HPRN PRN PO 07/31/25 13:15 Docusate Sodium 200 mg HS PO 07/31/25 22:00 07/31/25 22:03 200 MG Ibuprofen 600 mg Q6HP PRN PO 07/31/25 16:15 07/31/25 18:10 600 MG laboratory and microbiology Laboratory Tests 07/30/25 08:46 Test 07/30/25 08:46 Range/Units Serum Glucose 91 74-106 mg/dL Objective OBJECTIVE -A&O x4. No apparent distress. Affect appropriate -Afebrile, VSS -Chest: heart and lung sounds normal. -Breasts: Nipples intact w/o cracks or soreness -Abdomen: normal BS, soft, non-tender, no rebound or guarding, fundus firm @ U- 1, lochia minimal -Perineum:- no edema, or erythema -Extremities: no edema or tenderness Problems(with codes): (1) (normal spontaneous vaginal delivery) (2) Second degree perineal laceration Assessment/Plan ASSESSMENT -30 yo now ppd #1 s/p doing well. -Blood Type: O+ -Breast feeding -Rubella Immune PLAN -Helped patient latch baby onto R breast and extensively discussed . Answered all patient questions and concerns. -Continue pain management with oral medications as previously ordered -Increase fluid intake and fiber in diet to promote regular bowel movements, Laxative PRN -Encouraged patient to continue taking vitamin and iron -Educated patient on self care and warning signs of PPH, PPD, and pre-eclampsia. Answered all pt questions and concerns -Continue routine care and anticipate discharge today Plan discussed with: Patient, Spouse Visit Coding OBGYN Date of Service: Aug 01, 2025 Billing Provider: SHARDA GREEN CNM INTRAOPERATIVE NEURO TECH Common Visit Codes: [id number] INP/OBS CARE(MOD) SHARDA GREEN CNM Aug 01, 2025 04:21
--- NOTE | 2025-08-01 04:23 | DVHDS2 ---
Obstetrics Discharge Summary Obstetrics Discharge Summary Date of Admission: Jul 30, 2025 Date of Discharge: Aug 01, 2025 Reason For Admission: Induction of Labor (elective) Intrapartum Procedures: Spontaneous vaginal deliv, Episiotomy (ML with 2nd degree extension) Discharge Diagnosis: Term -Delivered Discharge Information: Activity (Unrestricted. Advance as tolerated. Balance activities with rest periods. No heavy lifting, pushing or straining. Pelvic rest x 6 weeks), Diet (Routine), Medications (Ibuprofen 600mg every 6 hours as needed for pain. Colace 100mg twice a day as needed to keep bowel movements soft and prevent constipation. Continue Vitamin and iron), Instructions (Routine), Discharge to (Home), Accompanied by (partner), Discarge date (08/01/2025) Discharge Care Plan Instructions - self care instructions given - emergency signs and symptoms including but not limited to pre-eclampsia precautions and signs of infection, PPH & of PPD reviewed with patient. -Follow up with OB Provider in 2 weeks and again at 6 weeks Visit Coding OBGYN Date of Service: Aug 01, 2025 Billing Provider: SHARDA GREEN CNM NURSE SPECIALIST Common Visit Codes: [id number]-EQN/OBS DISCH DAY >30MIN SHARDA GREEN CNM Aug 01, 2025 04:23
[2025-08-01] MEDS ORDERED: DOCU-94 PO (04:24)
[2025-08-01] MEDS ORDERED: IBU600T PO (04:24)
[2025-08-01 07:20] VITALS: BP 107/63; PULSE 78; TEMP 97.7; O2SAT 95
[2025-08-01 10:57] VITALS: BP 102/68; PULSE 84; TEMP 97.8; O2SAT 94
== END 2025-08-01 14:52 | disposition home or self-care (01) | DRG 807 ==
LOC: LDRP 08:10
PROVIDERS: ADMIT Obstetrics & Gynecology; ATTEND Obstetrics & Gynecology
PROC: 10E0XZZ Delivery of Products of Conception, External Approach (ICD-10-PCS; principal; 2025-07-31)
PROC: 0KQM0ZZ Repair Perineum Muscle, Open Approach (ICD-10-PCS; 2025-07-31)
PROC: 0W8NXZZ Division of Female Perineum, External Approach (ICD-10-PCS; 2025-07-31)
PROC: 3E0DXGC Introduction of Other Therapeutic Substance into Mouth and Pharynx, External Approach (ICD-10-PCS; 2025-07-31)
DX: O99.824 Streptococcus B carrier state complicating childbirth (principal); Z37.0 Single live birth; O70.1 Second degree perineal laceration during delivery; Z3A.39 39 weeks gestation of pregnancy
CPT/HCPCS: 36415; 59025; 59200; 59409; 76819; 80053; 80307; 81001; 85025; 85610; 85730; 86780; 86850; 86900; 86901; 94760; 94762; 96360; 96361; 96365; 96366; G0378; J2540; J2590; J7060

== ENCOUNTER 2025-08-08 00:11 | Emergency (ER) | payer BC ==
[~2025-08-08] VITALS: Ht 157.5 cm; Wt 73.7 kg
[~2025-08-08 00:11] MED LIST changes: +DOCU-94 PO; +IBU600T PO
--- NOTE | 2025-08-08 00:47 | ED.PDOC ---
History of Present Illness HPI Comments 30-year-old female who came to ER for dizziness. She denies any medical problems. Recently gave a week ago via vaginal delivery. This morning, patient had episodes of dizziness, that spontaneously resolved. Denies any headaches. This evening, patient started having shortness of breath, generalized shaking/tremors the persisted. Denies any fever. Blood pressure upon arrival was 122/79 mm Hg Chief Complaint: Dizziness Time Seen by MD: 00:47 Reviewed Notes: Nurses Notes Allergies: Coded Allergies: NO KNOWN ALLERGIES (Unverified , 03/31/23) Home Meds Active Scripts Docusate Sodium (Colace) 100 Mg Cap, 1 CAP PO BID, #60 CAP 2 Refills Prov:SHARDA GRENE CNM 08/01/25 Ibuprofen Micronized (MOTRIN TABLET) 600 Mg Tb, 600 MG PO Q6HP PRN for 20 Days, #80 TAB Prov:SHARDA GREEN CNM 08/01/25 Cephalexin (KEFLEX CAPSULE) 250 Mg Cp, 250 MG PO TID for 7 Days, #21 BOTTLE Prov:ABHI ORTIZ MD 03/31/23 Lidocaine Hcl (Lidocaine Viscous) 2 % Norma, 15 ML MT BID for 7 Days, #120 Prov:SANDRA MCMANUS MD 11/01/21 Chlorhexidine Gluconate (Mouth (Chlorhexadine Gluconate) 0.12 % Norma, 0.12 % MT BID, #120 ML Prov:SANDRA MCMANUS MD 11/01/21 Reported Medications Vit W/ Ferrous Fumara ( One Daily) Daily Tab, 1 TAB PO DAILY, #90 TAB 3 Refills 05/06/20 Information Source: Patient Mode of Arrival: Ambulatory Past Medical History PAST MEDICAL HISTORY: Denies Surgical History: Denies all surgeries ENTRY LEVEL ASSISTANT MANAGER History: Denies all ENTRY LEVEL ASSISTANT MANAGER Hx Family History Family History: Reviewed,noncontributory to illness Social History Smoker: Non-Smoker Alcohol: Denies ETOH Use Drugs: Denies Drug Use Lives In: Home Constitutional: denies: chills, diaphoresis, fatigue, fever, malaise, sweats, weakness, others EENTM: denies: blurred vision, double vision, ear bleeding, ear discharge, ear drainage, ear pain, ear ringing, eye pain, eye redness, hearing loss, mouth pain, mouth swelling, nasal discharge, nose bleeding, nose congestion, nose pain, photophobia, tearing, throat pain, throat swelling, voice changes, others Respiratory: denies: cough, hemoptysis, orthopnea, SOB at rest, shortness of breath, SOB with excertion, stridor, wheezing, others Cardiovascular: denies: chest pain, dizzy spells, diaphoresis, Dyspnea on exertion, edema, irregular heart beat, left arm pain, lightheadedness, pa lpitations, PND, syncope, others Gastrointestinal: denies: abdomen distended, abdominal pain, blood streaked bowels, constipated, diarrhea, dysphagia, difficulty swallowing, hematemesis, melena, nausea, poor appetite, poor fluid intake, rectal bleeding, rectal pain, vomiting, others Genitourinary: denies: abnormal vagina bleeding, burning, dyspareunia, dysuria, flank pain, frequency, hematuria, incontinence, pain, , vagina discharge, urgency, others Neurological: reports: dizziness, tremors; denies: fainting, headache, left sided numbness, left sided weakness, numbness, paresthesia, pre-existing deficit, right sided numbness, right sided weakness, seizure, speech problems, tingling, weakness, others Musculoskeletal: denies: back pain, gout, joint pain, joint swelling, muscle pain, muscle stiffness, neck pain, others Integumetry: denies: bruises, change in color, change in hair/nails, dryness, laceration, lesions, lumps, rash, wounds, others Allergic/Immunocompromised: denies: Difficulty Healing, Frequent Infections, Hives, Itching, others Hematologic/Lymphatic: denies: anemia, blood clots, easy bleeding, easy bruising, swollen glands, others Endocrine: denies: excessive hunger, excessive sweating, excessive thirst, excessive urination, flushing, intolerance to cold, intolerance to heat, un explained weight gain, unexplained weight loss, others Psychiatric: denies: anxiety, bipolar disorder, depression, hopeless, panic disorder, schizophrenia, sleepless, suicidal, others Physical Exam General Appearance: No Apparent Distress, Normal HEENT: Normal ENT Inspection, Pharynx Normal, TMs Normal Neck: Full Range of Motion, Non-Tender, Normal, Normal Inspection Respiratory: Chest Non-Tender, Lungs Clear, No Accessory Muscle Use, No Respiratory Distress, Normal Breath Sounds Cardiovascular: No Edema, No JVD, No Murmur, No Gallop, Normal Peripheral Pulses, Regular Rate/Rhythm Breast Exam: Deferred Gastrointestinal: No Organomegaly, Non Tender, No Pulsatile Mass, Normal Bowel Sounds, Soft Genitalia: Deferred Pelvic: Deferred Rectal: Deferred Extremities: No calf tenderness, Normal capillary refill, Normal inspection, Normal range of motion, Non-tender, No pedal edema Musculoskeletal : Apperance: Normal Neurologic: Alert, tool setter apprentice II-XII nml as Tested, No Motor Deficits, Normal Affect, Normal Mood, No Sensory Deficits Cerebellar Function: Normal Reflexes: Normal Skin: Dry, Normal Color, Warm Lymphatic: No Adenopathy Was a procedure done? Was a procedure done?: No Differential Dx Considerations may include: Anemia, electrolyte imbalance, dizziness, dehydration, anxiety X-Ray, Labs, Meds, VS Vital Signs Date Time Temp Pulse Resp B/P (MAP) Pulse Ox O2 Delivery O2 Flow Rate FiO2 08/08/25 02:17 97.0 68 20 114/71 (85) 99 97.0 08/08/25 02:17 68 20 68 Room Air 08/08/25 02:06 59 08/08/25 00:14 97.6 72 20 122/79 99 97.6 Lab Test 08/08/25 00:40 Range/Units White Blood Count 9.4 4.4-10.8 10^3/uL Red Blood Count 4.73 4.0-5.20 10^6/uL Hemoglobin 15.0 12.2-16.2 g/dL Hematocrit 44.1 36.0-46.0 % Mean Corpuscular Volume 93.4 80.0-100.0 fL Mean Corpuscular Hemoglobin 31.8 28.0-32.0 pg Mean Corpuscular Hemoglobin Concent 34.0 32.0-36.0 g/dL Red Cell Distribution Width 12.8 11.8-14.3 % Platelet Count 328 140-450 10^3/uL Mean Platelet Volume 6.9 6.9-10.8 fL Neutrophils (%) (Auto) 68.4 37.0-80.0 % Lymphocytes (%) (Auto) 22.8 10.0-50.0 % Monocytes (%) (Auto) 7.6 0.0-12.0 % Eosinophils (%) (Auto) 0.9 0.0-7.0 % Basophils (%) (Auto) 0.3 0.0-2.0 % Neutrophils # (Auto) 6.4 1.6-8.6 10 ^3/uL Lymphocytes # (Auto) 2.2 0.4-5.4 10 ^3/uL Monocytes # (Auto) 0.7 0-1.3 10 ^3/uL Eosinophils # (Auto) 0.1 0-0.8 10 ^3/uL Basophils # (Auto) 0 0-0.2 10 ^3/uL Nucleated Red Blood Cells 0.0 % Sodium Level 138 136-145 mmol/L Potassium Level 3.8 3.5-5.1 mmol/L Chloride Level 103 98-107 mmol/L Carbon Dioxide Level 28 20-31 mmol/L Anion Gap 7 5-15 Blood Urea Nitrogen 13 9-23 mg/dL Creatinine 0.56 0.550-1.02 mg/dL Glomerular Filtration Rate Calc 127 >90 mL/min BUN/Creatinine Ratio 23.2 H 10.0-20.0 Serum Glucose 108 H 74-106 mg/dL Calcium Level 9.2 8.7-10.4 mg/dL Magnesium Level 1.9 1.6-2.6 mg/dL Total Bilirubin 0.5 0.2-1.0 mg/dL Aspartate Amino Transferase (AST) 24 13-40 U/L Alanine Aminotransferase (ALT) 30 7-40 U/L Alkaline Phosphatase 129 H 46-116 U/L Total Protein 6.5 5.7-8.2 g/dL Albumin 4.0 3.2-4.8 g/dL Time of 1ST Reevaluation: 00:44 Reevaluation 1ST: Unchanged Patient Education/Counseling: Diagnosis, Treatment Family Education/Counseling: Diagnosis, Treatment SEPSIS Sepsis Screen Date sepsis recognized/suspect: Aug 08, 2025 Time Sepsis recognized/suspect: 0018 Recent Procedure: No On Antibiotic Therapy: No Respiratory Rate >20: No Heart Rate >90: No Temp<36 C (96.8 F) or >38.3 C: No SBP <90 or MAP <65 mmHG: No New Acute Mental Status Change: No Is the patient on CPAP, BIPAP,: No Physician Orders Electrocardigram (08/08/25 00:40) Vital Signs Date Time Temp Pulse Resp B/P (MAP) Pulse Ox O2 Delivery O2 Flow Rate FiO2 08/08/25 02:17 97.0 68 20 114/71 (85) 99 97.0 08/08/25 02:17 68 20 68 Room Air 08/08/25 02:06 59 08/08/25 00:14 97.6 72 20 122/79 99 97.6 Laboratory Tests Test 08/08/25 00:40 White Blood Count 9.4 10^3/uL (4.4-10.8) Departure 1 Departure Time of Disposition: 02:30 Impression: Primary Impression: Dizziness Disposition: 01 HOME / SELF CARE / HOMELESS Condition: Stable Discharged With: Self Critical Care Note Critical Care Time?: No Stability Stability form required: No Heart Score Heart Score: Heart Score Response (Comments) Value History N/A 0 EKG N/A 0 Age N/A 0 Risk Factors N/A 0 Troponin N/A 0 Total 0 I personally scribed for ELSI THOMAS MD ([email or web address]) on 08/08/25 at 00:47. Electronically submitted by Shlomo White ([facility]). ELSI THOMAS MD Aug 08, 2025 00:47
[2025-08-08 00:58] LABS: Hematocrit 44.1 % (36.0-46.0); Hemoglobin 15.0 g/dL (12.2-16.2); Mean Corpuscular Hemoglobin 31.8 pg (28.0-32.0); Mean Corpuscular Volume 93.4 fL (80.0-100.0); Nucleated Red Blood Cells % 0.0 %
[2025-08-08 01:21] LABS: Alanine Aminotransferase 30 U/L (7-40); Albumin 4.0 g/dL (3.2-4.8); Anion Gap 7 (5-15); BUN/Creatinine Ratio 23.2 (10.0-20.0); Bilirubin, Total 0.5 mg/dL (0.2-1.0); Blood Urea Nitrogen 13 mg/dL (9-23); Calcium 9.2 mg/dL (8.7-10.4); Carbon Dioxide 28 mmol/L (20-31); Chloride 103 mmol/L (98-107); Magnesium 1.9 mg/dL (1.6-2.6); Potassium 3.8 mmol/L (3.5-5.1); Sodium 138 mmol/L (136-145); Total Protein 6.5 g/dL (5.7-8.2)
[2025-08-08 01:32] LABS: Alkaline Phosphatase 129 U/L (46-116); Glucose 108 mg/dL (74-106)
[2025-08-08 02:17] VITALS: BP 114/71; PULSE 68; RESP 20; TEMP 97; O2SAT 68
--- NOTE | 2025-08-11 07:20 | ECG ---
[facility] Test Date: 2025-08-08 Test Time: 02:06:48 Pat Name: MARIELY VICTOR Department: [facility] ED Patient ID: [id number] Room: Gender: F Financial Institution Treasurer: RAFFY : 1995 Requested By: ELSI THOMAS Order Number: [id number] Reading MD: Gabriel Cueto Measurements Intervals [place] Rate: 59 P: -2 NC: 130 QRS: 71 QRSD: 87 T: 44 QT: 412 QTc: 409 Interpretive Statements Sinus rhythm Electronically Signed On 08-12-2025 14:57:17 PST by Gabriel Cueto Please click the below link to view image of tracing.
== END 2025-08-08 02:17 | disposition home or self-care (01) ==
LOC: ER 00:11
DX: R42 Dizziness and giddiness (principal); Z79.899 Other long term (current) drug therapy
CPT/HCPCS: 36415; 80053; 83735; 85025; 93005